=== PATIENT | female | born 2000 | race Caucasian/White ===

== ENCOUNTER 2022-11-09 07:12 | Day surgery (SDC) | payer BC ==
[~2022-11-09 07:12] MED LIST: Bupivacaine 0.5% 50 ML MDV ONE; Lactated Ringers 1,000 ML IV SCH; Nozin Nasal Sanitizer NASBOTH ONE
[2022-11-09] MEDS ORDERED: fentaNYL 100 MCG/2 ML SDV ONE ×2 (07:27→08:52)
[2022-11-09] MEDS ORDERED: Propofol 200 MG/20 ML SDV ONE (07:27)
[2022-11-09] MEDS ORDERED: Midazolam 1 MG/ML 2 ML SDV ONE (07:27)
[2022-11-09] MEDS ORDERED: ceFAZolin 1 GM in Premix Bag 1 BAG IV ONE (07:30)
[2022-11-09 07:31] LABS: HEMATOCRIT 39.7 % (34.3-46.0); HEMOGLOBIN 13.6 g/dL (11.2-15.5); MEAN CORPUSCULAR HGB CONC 34.3 g/dL (31.6-35.5); MEAN CORPUSCULAR VOLUME 90.4 fL (81.4-99.0); RED BLOOD CELL COUNT 4.39 M/uL (3.77-5.24); WHITE BLOOD CELL COUNT,WBC 4.9 K/uL (3.2-11.0)
[2022-11-09 07:46] LABS: CALCIUM 8.5 mg/dL (8.5-10.1); CREATININE 0.8 mg/dL (0.6-1.0); EST CRCL DRUG DOSING (CG) 97.57 mL/min; POTASSIUM,K 3.5 mmol/L (3.6-5.2)
[2022-11-09 08:07] LABS: ANION GAP 14.5 mmol/L (5.0-14.0)
[2022-11-09] MEDS ORDERED: Dexamethasone 4 MG/ML SDV ONE (09:16)
[2022-11-09] MEDS ORDERED: Ondansetron 4 MG/2 ML SDV ONE (09:16)
[2022-11-09] MEDS ORDERED: Acetaminophen/HYDROcodone 325-5 MG Tab PO PRN (10:10)
== END 2022-11-09 11:20 | disposition home or self-care (01) ==
LOC: JP.SDS 07:12
PROVIDERS: ATTEND Specialist
DX: M22.41 Chondromalacia patellae, right knee (principal)
CPT/HCPCS: 29877; 36415; 62270; 80048; 84703; 85027; A9270; J0690; J1100; J2250; J2405; J2704; J3010; J3490; J7120

== ENCOUNTER 2023-09-20 05:59 | Day surgery (SDC) | payer OTHER, BC ==
[2023-09-20 06:21] LABS: BASOPHILS ABSOLUTE AUTO 0.03 K/uL (0.00-0.10); BASOPHILS PERCENT AUTO 0.5 % (0.1-1.3); EOSINOPHILS ABSOLUTE AUTO 0.12 K/uL (0.00-0.40); EOSINOPHILS PERCENT AUTO 1.9 % (0.0-5.4); HEMATOCRIT 39.3 % (34.3-46.0); HEMOGLOBIN 13.5 g/dL (11.2-15.5); IMMATURE GRAN PERCENT AUTO 0.2 % (0.0-0.7); LYMPHOCYTES ABSOLUTE AUTO 2.29 K/uL (0.8-3.3); LYMPHOCYTES PERCENT AUTO 35.9 % (11.4-47.7); MEAN CORPUSCULAR HEMOGLOBIN 30.6 pg (31.6-35.5); MEAN CORPUSCULAR HGB CONC 34.4 g/dL (31.6-35.5); MEAN CORPUSCULAR VOLUME 89.1 fL (81.4-99.0); MONOCYTES PERCENT AUTO 7.8 % (3.3-12.6); NEUTROPHILS ABSOLUTE AUTO 3.43 K/uL (1.0-7.6); NEUTROPHILS PERCENT AUTO 53.7 % (40.0-78.1); PLATELET COUNT,PLT 188 K/uL (130-375); RED BLOOD CELL COUNT 4.41 M/uL (3.77-5.24); WHITE BLOOD CELL COUNT,WBC 6.4 K/uL (3.2-11.0)
[2023-09-20 06:25] LABS: IMMATURE GRAN ABSOLUTE AUTO 0.01 K/uL (0.00-0.23)
[2023-09-20] MEDS: Nozin Nasal Sanitizer NASBOTH ONE (06:33)
[2023-09-20] MEDS: Lactated Ringers 1,000 ML IV SCH (06:37)
[2023-09-20 06:41] LABS: A/G RATIO 1.4 (1.2-2.2); ALANINE AMINOTRANSFERASE,ALT 22 U/L (12-78); ALKALINE PHOSPHATASE 73 U/L (46-116); ANION GAP 8.3 mmol/L (5.0-14.0); ASPARTATE AMNIOTRANSFERASE,AST 14 U/L (15-37); BILIRUBIN TOTAL 0.7 mg/dL (0.2-1.0); BLOOD UREA NITROGEN,BUN 14 mg/dL (7-18); CALCIUM 8.7 mg/dL (8.5-10.1); CARBON DIOXIDE,CO2 26 mmol/L (21-32); CHLORIDE,CL 106 mmol/L (100-108); EST CRCL DRUG DOSING (CG) 77.38 mL/min; ESTIMATED GFR 80 mL/min (>60); GLUCOSE RANDOM 92 mg/dL (74-106); POTASSIUM,K 3.9 mmol/L (3.6-5.2); PROTEIN TOTAL,TP 6.9 g/dL (6.4-8.2); SODIUM,NA 140 mmol/L (140-148)
[2023-09-20] MEDS ORDERED: fentaNYL 100 MCG/2 ML SDV ONE (07:04)
[2023-09-20] MEDS ORDERED: Midazolam 1 MG/ML 2 ML SDV ONE (07:04)
[2023-09-20] MEDS ORDERED: Propofol 200 MG/20 ML SDV ONE (07:04)
[2023-09-20] MEDS: ceFAZolin 1 GM in Premix Bag 1 BAG IV ONE (07:50)
[2023-09-20] MEDS ORDERED: fentaNYL 250 MCG/5 ML SDV ONE (08:02)
[2023-09-20] MEDS ORDERED: Dexamethasone 4 MG/ML SDV ONE (08:03)
[2023-09-20] MEDS ORDERED: Ondansetron 4 MG/2 ML SDV ONE (08:03)
[2023-09-20] MEDS: Bupivacaine 0.5% 50 ML MDV ONE (08:31)
[2023-09-20] MEDS: Acetaminophen/HYDROcodone 325-5 MG Tab PO PRN (10:14)
== END 2023-09-20 10:45 | disposition home or self-care (01) ==
LOC: JP.SDS 05:59
PROVIDERS: ATTEND Specialist
DX: M94.261 Chondromalacia, right knee (principal)
CPT/HCPCS: 01400; 29879; 36415; 80053; 84703; 85025; A9270; J0665; J0689; J1100; J2250; J2405; J2704; J3010; J7120